=== PATIENT | male | born 1985 | race Caucasian/White ===

== ENCOUNTER → 2019-03-17 15:53 | Outpatient (CLI) | payer OTHER, SELFPAY ==
--- NOTE | 2019-03-17 16:02 | MRI_ITS ---
HISTORY:[facility] None TECHNIQUE: Coronal fat-suppressed proton density and fat-suppressed T2, sagittal T2 and axial fat-suppressed proton density and T2 # of images including paperwork:145 FINDINGS: Bones: No acute fracture. No significant marrow edema. There is spurring of the posterior glenoid. Rotator cuff: The supraspinatus, infraspinatus, teres minor and subscapularis tendons are intact Coracoacromial arch and Acromioclavicular joint: The acromion demonstrates Bigliani Type 2 morphology. The acromiohumeral distance is maintained. 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 Trace amount of fluid is seen within the subacromial subdeltoid bursa. The coracoacromial ligament is intact. The coracohumeral distance is maintained. Biceps tendon: The extraarticular tendon is within the bicipital groove.The intraarticular tendon is thickened with subtle increased T2 signal suggesting tendinosis. Glenohumeral joint and labrum: No significant joint effusion. There is a small tear of the superior posterior labrum with an associated. Labral cyst seen on coronal images 7 through 9 series 6 also on axial images 10 through 14 series 3. The anterior posterior bands of the inferior glenohumeral urinary intact CONCLUSION: No evidence for rotator cuff tear Minimal fluid seen within the subacromial subdeltoid. Tendinosis of the intra-articular bicipital tendon Superior posterior labrum with associated small pleural labral cyst at 1740 Reported and signed by: Regina Plummer DO Electronically Signed: Regina Plummer DO at 17:39 EDT Tel , Service support , MRI/Upper Ext Joint Only(Routine)
== END ==
PROVIDERS: Family Provider Family Medicine; PCP Family Medicine; Referring Provider Orthopaedic Surgery; Visit Provider Orthopaedic Surgery
DX: M25.512 Pain in left shoulder (principal)
CPT/HCPCS: 73221